=== PATIENT | female | born 1965 | race Caucasian/White ===

== ENCOUNTER 2017-10-08 05:40 | Day surgery (SDC) | payer BC, OTHER ==
[~2017-10-08] VITALS: Ht 167.6 cm; Wt 95.2 kg
[~2017-10-08 05:40] MED LIST: LEVOTHYROXINE150 MCG PO
--- NOTE | 2017-10-08 09:50 | NUR ---
10/08/17 0950 Ce Lorenzana 0837 PT ARRIVED TO PACU WITH ORAL AIRWAY IN PLACE, RESP EVEN AND UNLABORED ON 10L VIA MASK. 0838 PT MOOVING AND REACHING UP FOR ORAL AIRWAY. AIRWAY REMOVED. PT REORINTED TO PACU. 0839 PT O2 DECREASED TO 6L. PT MAINTAINING OWN AIRWAY. 0843 O2 REMOVED. MD AT BEDSIDE. 0857 X-RAY AT BEDSIDE. 0900 PT AWAKE AND TALKING VSS. DENIES NAUSEA AND PAIN. 0910 PT UP TO BATHROOM WITH BOOT IN PLACE BY RN. 0937 AT BEDSIDE DC INSTRUCTIONS GIVEN AND PT GETTING DRESSED. DENIES ANY PROBLEMS AT THIS TIME.
--- NOTE | 2017-11-17 06:59 | OR ---
[facility] [address], [place] [address] Signed DATE OF OPERATION: 10/08/2017 SURGEON: Jason Hernandez DPM PREOPERATIVE DIAGNOSIS: Plantar fasciitis with plantar heel spur, left foot. POSTOPERATIVE DIAGNOSIS: Plantar fasciitis with plantar heel spur, left foot. OPERATING SURGEON: Jason Hernandez DPM SHIFT PRODUCTION ASSOCIATE SURGEON: Aditya Rubalcava DPM ANESTHESIA: IV general with regional block, left lower extremity. VOICE STUDIES DIRECTOR: Wayne Goss CRNA. SPECIMEN TO PATHOLOGY: None. PROCEDURE PERFORMED: Plantar fasciotomy with plantar calcaneal heel spur excision, left foot. DESCRIPTION OF PROCEDURE: The patient was brought to the operating room and placed on the table in the supine position. A regional block had already been performed for the left lower extremity. IV sedation was performed and a local block then given to the left foot/ankle using a total of 14 mL, 1:1 mixture 0.5% ropivacaine plain and 2% lidocaine plain. The left leg and foot were then prepped and draped in the usual sterile manner and an Esmarch was used for hemostasis. Attention was initially directed to the medial aspect, left heel. A linear longitudinal incision was made at the level of the junction of dorsal and plantar skin, medial left heel. The incision was approximately 3-4 cm in length, initially full-thickness through the dermis, then deepened through subcutaneous tissue using careful dissection and Electronically Signed By: JASON HERNANDEZ DPM 11/17/17 0659 PATIENT NAME: LORETTA AARON OPERATIVE REPORT DATE OF : 65 REPORT #: [id number] PHYSICIAN: JASON HERNANDEZ DPM PCP: NO PRIMARY CARE PHYSICIAN REPORT IS CONFIDENTIAL AND NOT TO BE RELEASED WITHOUT AUTHORIZATION [facility] [address], [place] [address] Signed cautery as necessary for hemostasis. The plantar fascia was then identified and the [place] elevator was used to create a tunnel superior and inferior to the fascia next to the attachment at the calcaneus and then the fascia was sectioned at this site from medial to lateral covering half to two-thirds of the plantar fascia, not a complete sectioning. At this time, the plantar calcaneal spur was identified. This was resected using hand instrumentation, then smoothed with a hand rasp. At this time, intraoperative fluoroscopy was used to confirm resection of the plantar calcaneal spur. A small osseous fragment noted within the remaining plantar fascia at this site. This appears to have possibly been the distal tip of the spur itself and this was difficult to identify and was determined at this stage to be unaffected or not to affect the outcome of the procedure. Therefore determined unnecessary to pursue the small remaining bone fragment. The surgical site was then irrigated copiously with normal saline prior to closure. The surgical site was then closed with 3-0 nylon monofilament suture for skin closure. ESTIMATED BLOOD LOSS: Less than 5 mL. INTRAOPERATIVE COMPLICATIONS: None. INTRAOPERATIVE INJECTIONS: 1. 8 mL, 0.5% ropivacaine plain for reinforcement of local block. 2. 10 mL, 9:1 mixture 0.5% ropivacaine plain and dexamethasone phosphate as a local injection at the end of the procedure. DRESSINGS: Surgical site dressed with Adaptic, Betadine-soaked gauze, dry gauze, Flexicon, and Kerlix fluffs with Coban for mild compression. The patient tolerated the procedure and the anesthesia well and left the operating room with vital signs stable and vascular status intact to the left foot as evidenced by hyperemia with removal of the Esmarch. Jason Hernandez DPM DFB/MODL /[id number] Electronically Signed By: JASON HERNANDEZ DPM 11/17/17 0659 PATIENT NAME: LORETTA AARON OPERATIVE REPORT DATE OF : 65 REPORT #: [id number] PHYSICIAN: JASON HERNANDEZ DPM PCP: NO PRIMARY CARE PHYSICIAN REPORT IS CONFIDENTIAL AND NOT TO BE RELEASED WITHOUT AUTHORIZATION [facility] [address] [place] [address] [place] [address] Signed Copies: ~ Electronically Signed By: JASON HERNANDEZ DPM 11/17/17 0659 PATIENT NAME: LORETTA AARON OPERATIVE REPORT DATE OF : 65 REPORT #: [id number] PHYSICIAN: JASON HERNANDEZ DPM PCP: NO PRIMARY CARE PHYSICIAN REPORT IS CONFIDENTIAL AND NOT TO BE RELEASED WITHOUT AUTHORIZATION
== END 2017-10-08 09:46 | disposition home or self-care (01) ==
LOC: OPS 05:40 → DS 05:40 → OPS 06:45
PROVIDERS: Podiatrist Foot Surgery
PROC: 0QBM0ZZ Excision of Left Tarsal, Open Approach (ICD-10-PCS; principal; 2017-10-08 06:45)
DX: M72.2 Plantar fascial fibromatosis (principal); M77.32 Calcaneal spur, left foot; E66.9 Obesity, unspecified; Z88.0 Allergy status to penicillin; Z88.8 Allergy status to other drugs, medicaments and biological substances; Z79.899 Other long term (current) drug therapy; Z68.33 Body mass index [BMI] 33.0-33.9, adult
CPT/HCPCS: 01470; 62322; 64445; 73620; 73630; 76942; J0690; J1100; J1885; J2250; J2405; J2704; J2765; J2795; J3010; J7120